=== PATIENT | male | born 1955 | race Caucasian/White ===

== ENCOUNTER 2016-07-12 12:03 | Day surgery (SDC) | payer OTHER ==
[~2016-07-12] VITALS: Ht 165.1 cm; Wt 79.8 kg
[~2016-07-12 12:03] MED LIST: 0.9% Sodium Chloride 1,000 ML IV PRN; Sodium Chloride LOK Flush 10 mL Syringe IV PRN; fentaNYL-PF 50 mCg/mL 2 mL Inj IVPUSH PRN; no meds
[2016-07-12 13:47] VITALS: BP 133/85; PULSE 66; RESP 16; O2SAT 99
--- NOTE | 2016-07-12 15:04 | PCM.ENDCOL ---
Colonoscopy Date of Service: Jul 12, 2016 Physician Jitendra Aguilar MD Pre Procedure Diagnosis: FIT test positive Post Procedure Dx & Findings: Polyp hemorrhoids diverticula distal proctitis Procedure Colonoscopy PROCEDURE IN DETAIL: Prep adequate Withdrawal time 15 minutes After unremarkable rectal examination the Olympus video colonoscope was inserted patient's anal canal and was advanced to cecum. Landmarks were identified including the ileocecal valve and appendiceal orifice. Scope was withdrawn systematically. Visualized colonic mucosa showed healthy shiny mucosa with normal healthy-appearing vasculature. In the ileocecal valve, there was a 4 mm polyp which was removed completely using cold snare. In the transverse colon, there was a 3 mm polyp which was removed completely using cold snare. In the rectum there was a 2 mm polyp was removed completely using cold snare. In the distal rectum, there was some area of redness edema consistent with inflammation. Biopsies obtained. In the sigmoid colon there are several small to medium-sized diverticula. In the rectum retroflexion was done which showed hemorrhoids. Anal canal was inspected carefully on the way out and hemorrhoids noted. Impression Polyps 3 status post complete removal Diverticula Hemorrhoids Distal proctitis Recommendation Repeat colonoscopy 3 years Diverticular diet Presedation Assessment Risks and Benefits Informed consent was obtained from the patient after all risks and benefits including but not limited to drug reaction, infection, pain, bleeding, perforation, as well as alternatives were discussed. Patient monitoring Continuous pulse oximetry, cardiac monitoring, blood pressure monitoring, IV access, and oxygen at 2L per nasal cannula. Periprocedural Fentanyl: Fentanyl 50mcg Incrementally Midazolam: Midazolam 2mg Incrementally Complications There were no periprocedural complications identified. Post Procedure Plan Post Procedure Recommendations 1. Restrict activities today. 2. Resume normal activities in the morning. 3. Resume medications. 4. Patient informed of normal post procedure side effects as bloating, drowsiness, blood streaking in the stool. 5. average risk CRCS. If colon polyps come back as: -Hyperplastic- can repeat colonoscopy in 10 years -Tubular adenoma- repeat colonoscopy in 5 years -Tubulovillous/villous adenoma- repeat colonoscopy in 3 years -If any dysplasia- return to clinic as soon as possible 6. Please don't hesitate to call me with any questions. Jitendra Aguilar MD Jul 12, 2016 15:04
[2016-07-12 15:10] VITALS: BP 140/84; PULSE 76; RESP 16; O2SAT 100
[2016-07-12 15:19] VITALS: BP 133/82; PULSE 77; RESP 16; O2SAT 100
[2016-07-12 15:29] VITALS: BP 148/91; PULSE 74; RESP 16; O2SAT 98
--- NOTE | 2016-07-14 11:29 | PATH ---
SURGICAL PATHOLOGY Attending Physician:Jitendra Aguilar M.D. CASE STATUS: Signed Out PATIENT NAME: CARMEN ACEVES PID: [id number] : 1955 DATE COLLECTED:07/12/2016 00:00 SPECIMEN: 1: Small Intestine/Bowel, Biopsy 2: Colon, Biopsy 3: Rectum, Biopsy 4: Rectum, Biopsy CLINICAL HISTORY: 1. ILEOCECAL VALVE POLYP X1 2. TRANSVERSE COLON POLYP X1 3. RECTAL POLYP X1 4. RECTAL BX FINAL DIAGNOSIS: 1.ILEOCECAL VALVE POLYP: TUBULAR ADENOMA. 2.TRANSVERSE COLON POLYP: TUBULAR ADENOMA. 3.RECTAL POLYP: HYPERPLASTIC POLYP. 4.RECTAL BIOPSY: COLONIC MUCOSA WITH NO DIAGNOSTIC ALTERATIONS. Negative for inflammation, dysplasia and malignancy. ICD10 code D12.0 D12.3 K62.1 GROSS DESCRIPTION: The specimen is received in four formalin filled containers labeled with the patient's name. 1). The specimen is sublabeled "ileocecal valve polyp" and consists of a 0.4 x 0.3 x 0.3 CM portion of tissue which is entirely submitted in cassette 1A. 2). The specimen is sublabeled "transverse colon polyp" and consists of a 0.4 x 0.3 x 0.2 CM portion of tissue which is entirely submitted in cassette 2A. 3). The specimen is sublabeled "rectal polyp" and consists of a 0.2 x 0.2 x 0.2 CM portion of tissue which is entirely submitted in cassette 3A. 4). The specimen is sublabeled "rectal" and consists of 2 portions of tissue which aggregate to 0.3 x 0.3 x 0.2 CM. The specimen is entirely submitted in cassette 4A. 07/13/2016 [facility] MICRO DESCRIPTION: See diagnosis. ICD-9 CODES: CPT CODES: 1: 56938 2: 07801 3: 24218 4: 09717 Electronically Signed Out Latrice Daniels MD [facility] [address], [place] [address] Technical component performed at [facility], [address], [place], [address]
== END 2016-07-12 23:59 | disposition home or self-care (01) ==
LOC: END 12:03
PROVIDERS: ATTEND Internal Medicine
DX: D12.0 Benign neoplasm of cecum (principal); D12.3 Benign neoplasm of transverse colon; D12.8 Benign neoplasm of rectum; K64.9 Unspecified hemorrhoids; K92.1 Melena; K57.30 Diverticulosis of large intestine without perforation or abscess without bleeding; M41.9 Scoliosis, unspecified; I10 Essential (primary) hypertension; M54.9 Dorsalgia, unspecified